=== PATIENT | male | born 1990 | race Two or more races ===

== ENCOUNTER 2022-05-05 13:56 | Emergency (ER) | payer SELFPAY ==
[2022-05-05] MEDS ORDERED: Ondansetron 4 MG/2 ML SDV IVPUSH ONE (14:26)
[2022-05-05] MEDS ORDERED: Morphine 4 MG/ML Syringe IVPUSH ONE (14:26)
[2022-05-05] MEDS ORDERED: hydrALAZINE 20 MG/ML SDV IVPUSH ONE ×2 (14:26→15:29)
[2022-05-05 15:08] LABS: CARBON DIOXIDE,CO2 21.7 mmol/L (21.0-32.0); POTASSIUM,K 4.2 mmol/L (3.5-5.1)
[2022-05-05] MEDS ORDERED: Labetalol 100 MG/20 ML MDV IVPUSH ONE ×3 (16:57→18:08)
[2022-05-05 17:06] LABS: INFLUENZA B NAA NEGATIVE (NEGATIVE)
[2022-05-05 17:07] LABS: CORONAVIRUS COVID-19 NAA NEGATIVE (NEGATIVE); INFLUENZA A NAA POSITIVE (NEGATIVE)
[2022-05-05] MEDS ORDERED: Acetaminophen 325 MG Tab PO ONE (17:49)
== END 2022-05-05 19:11 | disposition home or self-care (01) ==
LOC: MW.ED 13:56 → EDSEX 13:56 → MW.ED 19:11
DX: J11.1 Influenza due to unidentified influenza virus with other respiratory manifestations (principal); I11.0 Hypertensive heart disease with heart failure; I50.9 Heart failure, unspecified; Z91.030 Bee allergy status; Z79.899 Other long term (current) drug therapy; Z20.822 Contact with and (suspected) exposure to COVID-19
CPT/HCPCS: 0240U; 36415; 71045; 80048; 84484; 85025; 93005; 96374; 96375; 96376; 99284; A9270; J0360; J2270; J2405; J3490

== ENCOUNTER 2022-06-18 10:41 | Emergency (ER) | payer SELFPAY ==
[2022-06-18] MEDS ORDERED: Albuterol/Ipratropium 3.0-0.5 MG/3 ML Neb Soln NEB ONE (11:06)
[2022-06-18 12:04] LABS: CORONAVIRUS COVID-19 NAA NEGATIVE (NEGATIVE); INFLUENZA A NAA NEGATIVE (NEGATIVE); INFLUENZA B NAA NEGATIVE (NEGATIVE)
== END 2022-06-18 12:31 | disposition home or self-care (01) ==
LOC: MW.ED 10:41
DX: J45.901 Unspecified asthma with (acute) exacerbation (principal); I11.0 Hypertensive heart disease with heart failure; I50.9 Heart failure, unspecified; Z91.013 Allergy to seafood; Z91.030 Bee allergy status; Z79.899 Other long term (current) drug therapy; Z20.822 Contact with and (suspected) exposure to COVID-19
CPT/HCPCS: 0240U; 99285; 99283; J7620-GY

== ENCOUNTER 2022-10-16 15:33 | Emergency (ER) | payer OTHER | END 2022-10-16 18:03 | disposition home or self-care (01) | LOC: MW.ED 15:33 | DX: J18.9 Pneumonia, unspecified organism (principal); I11.0 Hypertensive heart disease with heart failure; I50.9 Heart failure, unspecified; J45.909 Unspecified asthma, uncomplicated; Z91.030 Bee allergy status; Z91.013 Allergy to seafood; Z79.899 Other long term (current) drug therapy; Z20.822 Contact with and (suspected) exposure to COVID-19 | CPT/HCPCS: 71046; 71046-26; 87070; 87880-QW; 99283; 99285; U0002 ==

== ENCOUNTER 2022-11-07 08:56 | Emergency (ER) | payer MEDICAID ==
[2022-11-07] MEDS ORDERED: Sodium Chloride 0.9% 2.5 ML Syringe FLUSH PRN (09:28)
[2022-11-07] MEDS ORDERED: Sodium Chloride 0.9% 10 ML Syringe FLUSH PRN (09:28)
[2022-11-07 10:12] LABS: BASOPHILS PERCENT AUTO 0.2 % (0.0-1.5); EOSINOPHILS ABSOLUTE AUTO 0.5 K/uL (0.0-0.7); EOSINOPHILS PERCENT AUTO 5.4 % (0.0-7.0); HEMATOCRIT 37.2 % (38.0-50.0); HEMOGLOBIN 11.9 g/dL (13.0-17.0); LYMPHOCYTES PERCENT AUTO 20.4 % (16.0-40.0); MEAN CORPUSCULAR HEMOGLOBIN 26.9 pg (27.0-32.0); MEAN CORPUSCULAR VOLUME 84.2 fL (80.0-98.0); MONOCYTES ABSOLUTE AUTO 0.5 K/uL (0.0-0.8); MONOCYTES PERCENT AUTO 5.6 % (0.0-15.0); NEUTROPHILS ABSOLUTE AUTO 6.5 K/uL (1.4-5.7); NEUTROPHILS PERCENT AUTO 68.4 % (48.0-80.0); NRBC ABSOLUTE 0 K/uL; PLATELET COUNT,PLT 295 K/uL (150-400); RED BLOOD CELL COUNT 4.42 M/uL (4.50-5.90); WHITE BLOOD CELL COUNT,WBC 9.57 K/uL (4.0-11.0)
[2022-11-07] MEDS ORDERED: Morphine 2 MG/ML SYRINGE IVPUSH ONE (10:17)
[2022-11-07] MEDS ORDERED: Ondansetron 4 MG/2 ML SDV IVPUSH ONE (10:17)
[2022-11-07] MEDS ORDERED: Lidocaine 4% 1 each Patch TOP ONE (10:20)
[2022-11-07 10:26] LABS: INR 0.97 (0.86-1.11)
[2022-11-07 10:36] LABS: A/G RATIO 0.5 (0.9-1.6); ALBUMIN 2.3 g/dL (3.4-5.0); BILIRUBIN TOTAL 0.4 mg/dL (0.2-1.0); CALCIUM 8.6 mg/dL (8.5-10.1); CARBON DIOXIDE,CO2 20.9 mmol/L (21.0-32.0); CREATININE 2.8 mg/dL (0.8-1.3); EST CRCL DRUG DOSING (CG) 40.71 mL/min; POTASSIUM,K 3.7 mmol/L (3.5-5.1); PROTEIN TOTAL,TP 6.7 g/dL (6.4-8.2)
== END 2022-11-07 12:22 | disposition home or self-care (01) ==
LOC: MW.ED 08:56
DX: M25.562 Pain in left knee (principal); M25.462 Effusion, left knee; I12.9 Hypertensive chronic kidney disease with stage 1 through stage 4 chronic kidney disease, or unspecified chronic kidney disease; N18.9 Chronic kidney disease, unspecified; I50.9 Heart failure, unspecified; J45.909 Unspecified asthma, uncomplicated; Z87.891 Personal history of nicotine dependence; Z91.030 Bee allergy status; Z91.013 Allergy to seafood; Z79.899 Other long term (current) drug therapy
CPT/HCPCS: 36415; 73562; 80053; 84484; 85025; 85610; 93005; 93971; 96374; 96375; 99284; A9270; J2270; J2405; J3490

== ENCOUNTER 2023-06-25 09:58 | Observation (INO) | payer BC, OTHER ==
[2023-06-25] MEDS ORDERED: Ondansetron 4 MG/2 ML SDV IVPUSH STA (10:44)
[2023-06-25] MEDS ORDERED: Sodium Chloride 0.9% 2.5 ML Syringe FLUSH PRN (10:44)
[2023-06-25] MEDS ORDERED: Sodium Chloride 0.9% 1,000 ML IV STA ×2 (10:44→12:36)
[2023-06-25] MEDS ORDERED: Sodium Chloride 0.9% 10 ML Syringe FLUSH PRN (10:44)
[2023-06-25 11:46] LABS: BASOPHILS ABSOLUTE AUTO 0.02 K/uL (0.00-0.20); BASOPHILS PERCENT AUTO 0.1 % (0.0-1.0); EOSINOPHILS ABSOLUTE AUTO 0.35 K/uL (0.00-0.45); EOSINOPHILS PERCENT AUTO 2.3 % (0.0-6.0); HEMATOCRIT 42.5 % (42.0-52.0); HEMOGLOBIN 13.5 g/dL (14.0-18.0); IMMATURE GRAN ABSOLUTE AUTO 0.04 K/uL (0.00-0.05); IMMATURE GRAN PERCENT AUTO 0.3 % (0.0-0.4); LYMPHOCYTES ABSOLUTE AUTO 0.31 K/uL (1.00-4.80); MEAN CORPUSCULAR HGB CONC 31.8 g/dL (32.0-36.0); MEAN CORPUSCULAR VOLUME 88.2 fL (83.0-99.0); MEAN PLATELET VOLUME 9.4 fL (9.4-12.4); MONOCYTES ABSOLUTE AUTO 0.69 K/uL (0.00-0.80); MONOCYTES PERCENT AUTO 4.5 % (0.0-8.0); NEUTROPHILS PERCENT AUTO 90.8 % (41.0-71.0); PLATELET COUNT,PLT 302 K/uL (150-400); RED BLOOD CELL COUNT 4.82 M/uL (4.52-5.90); WHITE BLOOD CELL COUNT,WBC 15.21 K/uL (3.9-11.3)
[2023-06-25 12:16] LABS: CORONAVIRUS COVID-19 NAA NEGATIVE (NEGATIVE); INFLUENZA A NAA NEGATIVE (NEGATIVE); INFLUENZA B NAA NEGATIVE (NEGATIVE); RESPIRATORY SYNCYTIAL VIR NAA NEGATIVE (NEGATIVE)
[2023-06-25 12:18] LABS: A/G RATIO 0.6 (0.9-1.6); ALBUMIN 2.9 g/dL (3.4-5.0); BILIRUBIN TOTAL 0.3 mg/dL (0.2-1.0); CALCIUM 8.6 mg/dL (8.5-10.1); CARBON DIOXIDE,CO2 18.6 mmol/L (21.0-32.0); CREATININE 2.3 mg/dL (0.8-1.3); EST CRCL DRUG DOSING (CG) 47.61 mL/min; MAGNESIUM 3.3 mg/dL (1.8-2.4); PROTEIN TOTAL,TP 7.6 g/dL (6.4-8.2)
[2023-06-25] MEDS ORDERED: Insulin Regular, Human 100 Units/ML 10 ML Vial IVPUSH STA (12:36)
[2023-06-25] MEDS ORDERED: Calcium Gluconate 10% 1 GM/10 ML SDV IVPUSH STA (12:36)
[2023-06-25] MEDS ORDERED: 50% Dextrose in Water 50 ML Syringe IVPUSH PRN ×2 (12:36→20:57)
[2023-06-25] MEDS ORDERED: Glucagon,Human Recombinant 1 MG Vial IM PRN ×2 (12:36→20:57)
[2023-06-25] MEDS ORDERED: 50% Dextrose in Water 50 ML Syringe IVPUSH STA (12:47)
[2023-06-25 12:50] LABS: PHOSPHORUS 4.2 mg/dL (2.6-4.7); URIC ACID 7.3 mg/dL (2.6-7.2)
[2023-06-25] MEDS ORDERED: Piperacillin/Tazobactam 3.375 GM in Sodium Chloride 0.9% 100 ML IV STA (12:50)
[2023-06-25 13:16] LABS: APPEARANCE,URINE CLEAR; BILIRUBIN,URINE NEGATIVE (NEGATIVE); COLOR,URINE YELLOW; GLUCOSE,URINE 250 mg/dL (NEGATIVE); KETONES,URINE NEGATIVE (NEGATIVE); LEUKOCYTE ESTERASE,URINE NEGATIVE (NEGATIVE); NITRITE,URINE NEGATIVE (NEGATIVE); OCCULT BLOOD,URINE MODERATE (NEGATIVE); PROTEIN,URINE >=300 mg/dL (NEGATIVE); UROBILINOGEN,URINE 0.2 EU/dL (<2.0)
[2023-06-25] MEDS ORDERED: Iopamidol 755 MG/ML 500 ML Multipack Bottle IVPUSH STA (13:33)
[2023-06-25 13:48] LABS: BACTERIA,URINE FEW (NEGATIVE); EPITHELIAL CELLS,URINE FEW (NONE-FEW); MUCUS,URINE LIGHT (NONE-MOD); WBC,URINE 0-4 (0-5/HPF)
[2023-06-25 13:52] LABS: BASE EXCESS VENOUS -9.9 (-2.0-3.0); PH,VENOUS 7.2 (7.31-7.41)
[2023-06-25 14:56] LABS: BASE EXCESS VENOUS -10.1 (-2.0-3.0); PH,VENOUS 7.21 (7.31-7.41)
[2023-06-25 15:47] LABS: CALCIUM 8.3 mg/dL (8.5-10.1); CARBON DIOXIDE,CO2 17.4 mmol/L (21.0-32.0); CREATININE 2.1 mg/dL (0.8-1.3); EST CRCL DRUG DOSING (CG) 52.14 mL/min
[2023-06-25] MEDS ORDERED: Sodium Bicarbonate 150 MEQ in Dextrose 5% in Water 1,000 ML IV SCH ×2 (17:15)
[2023-06-25] MEDS ORDERED: Furosemide 40 MG/4 ML VIAL IVPUSH STA (17:41)
[2023-06-25] MEDS ORDERED: Acetaminophen 325 MG Tab PO PRN (18:24)
[2023-06-25] MEDS ORDERED: Ondansetron 4 MG/2 ML SDV IVPUSH PRN (18:24)
[2023-06-25] MEDS ORDERED: Sodium Zirconium Cyclosilicate 10 GM Packet PO SCH (18:30)
[2023-06-25] MEDS ORDERED: Pantoprazole 40 MG in Sodium Chloride 0.9% 10 ML IVPUSH SCH ×2 (18:30→20:30)
[2023-06-25] MEDS ORDERED: Heparin Sodium 5,000 Units/ML Vial SUBCUT SCH (18:30)
[2023-06-25 18:48] LABS: HEMOGLOBIN A1C 6.5 %
[2023-06-25 19:22] LABS: CALCIUM 8.4 mg/dL (8.5-10.1); CARBON DIOXIDE,CO2 17.9 mmol/L (21.0-32.0); CREATININE 2.1 mg/dL (0.8-1.3); EST CRCL DRUG DOSING (CG) 52.14 mL/min; POTASSIUM,K 5.6 mmol/L (3.5-5.1)
[2023-06-25] MEDS: Heparin Sodium 5,000 Units/ML Vial SUBCUT SCH (20:44)
[2023-06-25] MEDS ORDERED: Piperacillin/Tazobactam 3.375 GM in Sodium Chloride 0.9% 100 ML IV SCH (21:00)
[2023-06-25] MEDS: Sodium Zirconium Cyclosilicate 10 GM Packet PO SCH (21:32)
[2023-06-25] MEDS: Piperacillin/Tazobactam 4.5 GM in Sodium Chloride 0.9% 100 ML IV SCH (21:33)
[2023-06-25] MEDS: Insulin Aspart 100 Units/ML 3 ML Pen SUBCUT SCH (21:38)
[2023-06-26] MEDS: Sodium Zirconium Cyclosilicate 10 GM Packet PO SCH ×2 (05:26→14:04)
[2023-06-26] MEDS: Piperacillin/Tazobactam 4.5 GM in Sodium Chloride 0.9% 100 ML IV SCH ×2 (05:27→14:17)
[2023-06-26 06:28] LABS: BASOPHILS ABSOLUTE AUTO 0.01 K/uL (0.00-0.20); BASOPHILS PERCENT AUTO 0.1 % (0.0-1.0); EOSINOPHILS ABSOLUTE AUTO 0.49 K/uL (0.00-0.45); HEMATOCRIT 35.9 % (42.0-52.0); HEMOGLOBIN 11.3 g/dL (14.0-18.0); IMMATURE GRAN ABSOLUTE AUTO 0.01 K/uL (0.00-0.05); IMMATURE GRAN PERCENT AUTO 0.1 % (0.0-0.4); LYMPHOCYTES ABSOLUTE AUTO 1.24 K/uL (1.00-4.80); LYMPHOCYTES PERCENT AUTO 15.1 % (24.0-44.0); MEAN CORPUSCULAR HEMOGLOBIN 27.8 pg (28.0-32.0); MEAN CORPUSCULAR HGB CONC 31.5 g/dL (32.0-36.0); MEAN CORPUSCULAR VOLUME 88.4 fL (83.0-99.0); MONOCYTES PERCENT AUTO 8.5 % (0.0-8.0); NEUTROPHILS ABSOLUTE AUTO 5.78 K/uL (1.80-7.70); NEUTROPHILS PERCENT AUTO 70.2 % (41.0-71.0); PLATELET COUNT,PLT 235 K/uL (150-400); RED BLOOD CELL COUNT 4.06 M/uL (4.52-5.90); WHITE BLOOD CELL COUNT,WBC 8.23 K/uL (3.9-11.3)
[2023-06-26 06:44] LABS: CALCIUM 8.3 mg/dL (8.5-10.1); CARBON DIOXIDE,CO2 20.1 mmol/L (21.0-32.0); CREATININE 2.5 mg/dL (0.8-1.3); EST CRCL DRUG DOSING (CG) 45.18 mL/min; MAGNESIUM 2.9 mg/dL (1.8-2.4); POTASSIUM,K 4.7 mmol/L (3.5-5.1)
[2023-06-26] MEDS: Insulin Aspart 100 Units/ML 3 ML Pen SUBCUT SCH ×2 (08:20→12:15)
[2023-06-26] MEDS: Heparin Sodium 5,000 Units/ML Vial SUBCUT SCH (08:58)
== END 2023-06-26 16:44 | disposition home or self-care (01) ==
LOC: MW.ED 09:58 → MW.MS 18:28
PROVIDERS: ADMIT Family Medicine; ATTEND Family Medicine
DX: R19.7 Diarrhea, unspecified (principal); E87.5 Hyperkalemia; E87.20 Acidosis, unspecified; N18.9 Chronic kidney disease, unspecified; N18.31 Chronic kidney disease, stage 3a; R31.9 Hematuria, unspecified; E66.9 Obesity, unspecified; I10 Essential (primary) hypertension; Z79.899 Other long term (current) drug therapy; Z91.030 Bee allergy status; Z91.013 Allergy to seafood
CPT/HCPCS: 0241U; 36415; 74177; 80048; 80053; 81001; 82550; 82803; 82947; 83001; 83002; 83036; 83605; 83690; 83735; 84100; 84550; 85025; 87040; 93005; 96361; 96365; 96367; 96375; 99285; A9270; C9113; J0612; J1644; J1940; J2405; J2543; J3490; J7030; J7060; Q9967; 96366; 96372; 96376; G0378; J1815-GY

== ENCOUNTER 2023-11-24 10:52 | Inpatient (IN) | payer BC ==
[2023-11-24] MEDS: Sodium Chloride 0.9% 1,000 ML IV ONE (11:23)
[2023-11-24] MEDS: Ondansetron 4 MG/2 ML SDV IVPUSH ONE (11:24)
[2023-11-24 11:25] LABS: BASOPHILS ABSOLUTE AUTO 0.06 K/uL (0.00-0.20); BASOPHILS PERCENT AUTO 0.5 % (0.0-1.0); EOSINOPHILS ABSOLUTE AUTO 0.35 K/uL (0.00-0.45); EOSINOPHILS PERCENT AUTO 2.9 % (0.0-6.0); HEMATOCRIT 34.9 % (42.0-52.0); HEMOGLOBIN 11.4 g/dL (14.0-18.0); IMMATURE GRAN ABSOLUTE AUTO 0.02 K/uL (0.00-0.05); IMMATURE GRAN PERCENT AUTO 0.2 % (0.0-0.4); LYMPHOCYTES ABSOLUTE AUTO 4.73 K/uL (1.00-4.80); LYMPHOCYTES PERCENT AUTO 39.2 % (24.0-44.0); MEAN CORPUSCULAR HEMOGLOBIN 27.5 pg (28.0-32.0); MEAN CORPUSCULAR HGB CONC 32.7 g/dL (32.0-36.0); MEAN CORPUSCULAR VOLUME 84.1 fL (83.0-99.0); MEAN PLATELET VOLUME 9.7 fL (9.4-12.4); MONOCYTES ABSOLUTE AUTO 0.86 K/uL (0.00-0.80); MONOCYTES PERCENT AUTO 7.1 % (0.0-8.0); NEUTROPHILS ABSOLUTE AUTO 6.05 K/uL (1.80-7.70); NEUTROPHILS PERCENT AUTO 50.1 % (41.0-71.0); PLATELET COUNT,PLT 282 K/uL (150-400); RED BLOOD CELL COUNT 4.15 M/uL (4.52-5.90); WHITE BLOOD CELL COUNT,WBC 12.07 K/uL (3.9-11.3)
[2023-11-24 11:31] LABS: BASE EXCESS VENOUS -8.6 (-2.0-3.0); PH,VENOUS 7.28 (7.31-7.41)
[2023-11-24 11:42] LABS: APPEARANCE,URINE SLT CLOUDY; BILIRUBIN,URINE NEGATIVE (NEGATIVE); COLOR,URINE YELLOW; GLUCOSE,URINE 100 mg/dL (NEGATIVE); KETONES,URINE NEGATIVE (NEGATIVE); LEUKOCYTE ESTERASE,URINE NEGATIVE (NEGATIVE); NITRITE,URINE NEGATIVE (NEGATIVE); OCCULT BLOOD,URINE MODERATE (NEGATIVE); PROTEIN,URINE >=300 mg/dL (NEGATIVE); UROBILINOGEN,URINE 0.2 EU/dL (<2.0)
[2023-11-24 11:55] LABS: BACTERIA,URINE 1+ (NEGATIVE); EPITHELIAL CELLS,URINE FEW (NONE-FEW); MUCUS,URINE LIGHT (NONE-MOD)
[2023-11-24 11:55] LABS: A/G RATIO 0.5 (0.9-1.6); ALBUMIN 2.5 g/dL (3.4-5.0); BILIRUBIN TOTAL 0.4 mg/dL (0.2-1.0); CARBON DIOXIDE,CO2 19.9 mmol/L (21.0-32.0); CREATININE 3.7 mg/dL (0.8-1.3); EST CRCL DRUG DOSING (CG) 29.59 mL/min; POTASSIUM,K 3.9 mmol/L (3.5-5.1); PROTEIN TOTAL,TP 7.2 g/dL (6.4-8.2)
[2023-11-24 12:16] LABS: CORONAVIRUS COVID-19 NAA NEGATIVE (NEGATIVE); INFLUENZA A NAA NEGATIVE (NEGATIVE); INFLUENZA B NAA NEGATIVE (NEGATIVE); RESPIRATORY SYNCYTIAL VIR NAA NEGATIVE (NEGATIVE)
[2023-11-24] MEDS: cefTRIAXone 1 GM in Sodium Chloride 0.9% 50 ML IV ONE (13:24)
[2023-11-24] MEDS ORDERED: Nicotine 14 MG/24 Hr Patch TRDERM PRN (16:25)
[2023-11-24] MEDS ORDERED: Promethazine 25 MG Tab PO PRN (16:25)
[2023-11-24] MEDS ORDERED: Acetaminophen 325 MG Tab PO PRN (16:25)
[2023-11-24] MEDS ORDERED: Ondansetron 4 MG Tab.DIS PO PRN (16:25)
[2023-11-24] MEDS ORDERED: Sodium Chloride 0.9% 1,000 ML IV SCH (16:30)
[2023-11-24 17:11] LABS: HEMOGLOBIN A1C 6.8 %
[2023-11-24] MEDS: Sodium Chloride 0.9% 1,000 ML IV SCH ×2 (17:14→19:09)
[2023-11-24 17:38] LABS: CREATININE,URINE RAND 270.9 mg/dL
[2023-11-25] MEDS: Vancomycin 125 MG Cap PO SCH (00:25)
[2023-11-25 06:09] LABS: HEMATOCRIT 29.7 % (42.0-52.0); HEMOGLOBIN 9.4 g/dL (14.0-18.0); MEAN CORPUSCULAR HEMOGLOBIN 27.5 pg (28.0-32.0); MEAN CORPUSCULAR HGB CONC 31.6 g/dL (32.0-36.0); MEAN CORPUSCULAR VOLUME 86.8 fL (83.0-99.0); MEAN PLATELET VOLUME 9.6 fL (9.4-12.4); PLATELET COUNT,PLT 244 K/uL (150-400); RED BLOOD CELL COUNT 3.42 M/uL (4.52-5.90); WHITE BLOOD CELL COUNT,WBC 8.19 K/uL (3.9-11.3)
[2023-11-25 06:31] LABS: EOSINOPHILS ABSOLUTE MAN 0.41 K/uL (0.00-0.45); EOSINOPHILS PERCENT MAN 5 % (0-6); LYMPHOCYTES ABSOLUTE MAN 3.93 K/uL (1.00-4.80); LYMPHOCYTES PERCENT MAN 48 % (24-44); MONOCYTES ABSOLUTE MAN 0.74 K/uL (0.00-0.80); MONOCYTES PERCENT MAN 9 % (0-8); SEG NEUTROPHILS ABSOLUTE MAN 3.11 K/uL (1.80-7.70); SEG NEUTROPHILS PERCENT MAN 38 % (41-71)
[2023-11-25 06:35] LABS: A/G RATIO 0.5 (0.9-1.6); BILIRUBIN TOTAL 0.3 mg/dL (0.2-1.0); CALCIUM 7.6 mg/dL (8.5-10.1); CARBON DIOXIDE,CO2 20.6 mmol/L (21.0-32.0); CREATININE 2.6 mg/dL (0.8-1.3); EST CRCL DRUG DOSING (CG) 42.12 mL/min; MAGNESIUM 2.7 mg/dL (1.8-2.4); POTASSIUM,K 3.9 mmol/L (3.5-5.1); PROTEIN TOTAL,TP 5.9 g/dL (6.4-8.2)
[2023-11-25] MEDS ORDERED: cefTRIAXone 1 GM in Sodium Chloride 0.9% 50 ML IV SCH (12:30)
[2023-11-25] MEDS ORDERED: Vancomycin 125 MG Cap PO SCH (22:49)
[2023-11-26 06:26] LABS: HEMATOCRIT 30.1 % (42.0-52.0); HEMOGLOBIN 9.6 g/dL (14.0-18.0); MEAN CORPUSCULAR HEMOGLOBIN 27.5 pg (28.0-32.0); MEAN CORPUSCULAR HGB CONC 31.9 g/dL (32.0-36.0); MEAN CORPUSCULAR VOLUME 86.2 fL (83.0-99.0); MEAN PLATELET VOLUME 9.5 fL (9.4-12.4); PLATELET COUNT,PLT 253 K/uL (150-400); RED BLOOD CELL COUNT 3.49 M/uL (4.52-5.90)
[2023-11-26 06:52] LABS: A/G RATIO 0.5 (0.9-1.6); BILIRUBIN TOTAL 0.3 mg/dL (0.2-1.0); CALCIUM 7.6 mg/dL (8.5-10.1); CARBON DIOXIDE,CO2 19.5 mmol/L (21.0-32.0); CREATININE 2.3 mg/dL (0.8-1.3); EST CRCL DRUG DOSING (CG) 47.61 mL/min; POTASSIUM,K 3.6 mmol/L (3.5-5.1); PROTEIN TOTAL,TP 5.9 g/dL (6.4-8.2)
[2023-11-26 06:55] LABS: BAND ABSOLUTE MAN 0.09; BAND PERCENT MAN 1 %; EOSINOPHILS ABSOLUTE MAN 0.26 K/uL (0.00-0.45); EOSINOPHILS PERCENT MAN 3 % (0-6); LYMPHOCYTES ABSOLUTE MAN 5.36 K/uL (1.00-4.80); LYMPHOCYTES PERCENT MAN 63 % (24-44); MONOCYTES ABSOLUTE MAN 0.51 K/uL (0.00-0.80); MONOCYTES PERCENT MAN 6 % (0-8)
[2023-11-26 06:56] LABS: SEG NEUTROPHILS PERCENT MAN 27 % (41-71)
== END 2023-11-26 14:30 | disposition home or self-care (01) | DRG 469 ==
LOC: MW.ED 10:52 → MW.MS 14:00 → OBSVTOIN 11-25 12:05 → MW.MS 11-25 12:58
PROVIDERS: ADMIT Internal Medicine; ATTEND Internal Medicine
DX: N17.9 Acute kidney failure, unspecified (principal); N39.0 Urinary tract infection, site not specified; E11.22 Type 2 diabetes mellitus with diabetic chronic kidney disease; N18.30 Chronic kidney disease, stage 3 unspecified; I12.9 Hypertensive chronic kidney disease with stage 1 through stage 4 chronic kidney disease, or unspecified chronic kidney disease; E66.9 Obesity, unspecified; D72.829 Elevated white blood cell count, unspecified; K52.9 Noninfective gastroenteritis and colitis, unspecified; J45.909 Unspecified asthma, uncomplicated; K59.09 Other constipation; F17.290 Nicotine dependence, other tobacco product, uncomplicated; E86.0 Dehydration; Z68.32 Body mass index [BMI] 32.0-32.9, adult; Z98.890 Other specified postprocedural states; Z90.49 Acquired absence of other specified parts of digestive tract; Z91.030 Bee allergy status; Z91.013 Allergy to seafood; Z79.899 Other long term (current) drug therapy; R39.2 Extrarenal uremia
CPT/HCPCS: 0241U; 36415; 74176; 74176-26; 80053; 81001; 82009; 82570; 82803; 82947; 83036; 83605; 83735; 84300; 85025; 87040; 87045; 87046; 87086; 87324; 87449; 87493; 87899; 96361; 96365; 96375; 99284; 99285-25; A9270-GY; G0378; J0696; J2405; J3490; J7030

== ENCOUNTER 2024-10-02 13:40 | Emergency (ER) | payer SELFPAY ==
[2024-10-02] MEDS: Albuterol/Ipratropium 3.0-0.5 MG/3 ML Neb Soln NEB ONE (15:03)
== END 2024-10-02 15:52 | disposition home or self-care (01) ==
LOC: MW.ED 13:40
DX: J45.901 Unspecified asthma with (acute) exacerbation (principal); I10 Essential (primary) hypertension; Z75.3 Unavailability and inaccessibility of health-care facilities; Z79.899 Other long term (current) drug therapy; Z91.030 Bee allergy status; Z91.048 Other nonmedicinal substance allergy status; Z91.013 Allergy to seafood; Z79.51 Long term (current) use of inhaled steroids
CPT/HCPCS: 71046; 94640; 99285; J7620; 99283; A9270-GY